=== PATIENT | female | born 1935 | race Caucasian/White ===

== ENCOUNTER 2020-04-08 10:29 | Emergency (ER) | payer MEDICARE ==
[~2020-04-08] VITALS: Ht 154.9 cm; Wt 47.0 kg
[2020-04-08 10:32] VITALS: BP 144/89
[2020-04-08] MEDS ORDERED: traMADol 50MG tablet PO ONE (11:25)
[2020-04-08] MEDS ORDERED: TRAM50TA2 PO (12:06)
== END 2020-04-08 12:26 | disposition home or self-care (01) ==
LOC: ER 10:31
DX: S70.01XA Contusion of right hip, initial encounter (principal); M79.661 Pain in right lower leg; Z79.899 Other long term (current) drug therapy; W01.198A Fall on same level from slipping, tripping and stumbling with subsequent striking against other object, initial encounter; Y93.89 Activity, other specified; Y92.89 Other specified places as the place of occurrence of the external cause; Y99.8 Other external cause status
CPT/HCPCS: 73502; 73590; 99284

== ENCOUNTER 2020-04-21 11:16 | Emergency (ER) | payer MEDICARE ==
[~2020-04-21] VITALS: Ht 154.9 cm; Wt 46.8 kg
[2020-04-21 11:55] VITALS: BP 169/79
[2020-04-21] MEDS ORDERED: IBUP-1984 PO (12:05)
[2020-04-21] MEDS ORDERED: ketorolac trometh. 30mg/ml inj. IM ONE (12:05)
== END 2020-04-21 12:23 | disposition home or self-care (01) ==
LOC: ER 11:17
DX: M79.661 Pain in right lower leg (principal); M79.604 Pain in right leg; W18.39XA Other fall on same level, initial encounter; Y93.89 Activity, other specified; Y92.89 Other specified places as the place of occurrence of the external cause; Y99.8 Other external cause status
CPT/HCPCS: 96372; 99283; J1885

== ENCOUNTER 2020-07-07 11:24 | Emergency (ER) | payer MEDICARE ==
[~2020-07-07] VITALS: Ht 154.9 cm; Wt 47.5 kg
[2020-07-07] MEDS ORDERED: bacitracin 15gm ointment TP ONE (12:05)
[2020-07-07] MEDS ORDERED: TETanus/Pertussis (Acell)/Diphther VAC/PF (Tdap-Adult) 0.5ml syringe IMVAC ONE (12:05)
[2020-07-07] MEDS ORDERED: LIDOcaine 1% W/epiNEPHrine 1:200,000 10ml vial IJ ONE (12:05)
[2020-07-07] MEDS ORDERED: AMOX-422 PO (12:29)
[2020-07-07 13:06] VITALS: BP 144/76
== END 2020-07-07 13:18 | disposition home or self-care (01) ==
LOC: ER 11:24
DX: S91.012A Laceration without foreign body, left ankle, initial encounter (principal); Z79.2 Long term (current) use of antibiotics; W55.01XA Bitten by cat, initial encounter; Y93.89 Activity, other specified; Y92.89 Other specified places as the place of occurrence of the external cause; Y99.8 Other external cause status
CPT/HCPCS: 12002; 90471; 90715; 99283

== ENCOUNTER 2020-07-10 18:27 | Emergency (ER) | payer MEDICARE ==
[~2020-07-10] VITALS: Ht 154.9 cm; Wt 47.5 kg
[~2020-07-10 18:27] MED LIST: AMOX-422 PO
--- NOTE | 2020-07-10 19:55 | NUR ---
RIGHT MEDIAL LOWER LEG AT WOUND WITH SUTURES CLEANED WITH NS AND DRESSED ORDERED WITH NON ADVENSIVE / XYLERIFORM / AND HELD IN PLACE WITH ACHE WRAP DONE BY TECH
[2020-07-10 20:23] VITALS: BP 128/68
== END 2020-07-10 20:05 | disposition home or self-care (01) ==
LOC: ER 18:28
DX: M25.572 Pain in left ankle and joints of left foot (principal); R22.42 Localized swelling, mass and lump, left lower limb; L53.9 Erythematous condition, unspecified; Z48.02 Encounter for removal of sutures; Z79.2 Long term (current) use of antibiotics
CPT/HCPCS: 99281